=== PATIENT | female | born 1950 | race Caucasian/White ===

== ENCOUNTER → 2017-01-15 | Outpatient (CLI) | payer OTHER | LOC: RAD 05:12 | DX: Z12.31 Encounter for screening mammogram for malignant neoplasm of breast (principal) ==

== ENCOUNTER → 2018-04-07 | Outpatient (CLI) | payer OTHER | LOC: RAD 09:29 | DX: Z12.31 Encounter for screening mammogram for malignant neoplasm of breast (principal) ==

== ENCOUNTER 2018-09-24 10:51 | Emergency (ER) | payer OTHER ==
[~2018-09-24] VITALS: Ht 154.9 cm; Wt 92.5 kg
[2018-09-24 10:52] VITALS: BP 138/60
== END 2018-09-24 12:00 | disposition home or self-care (01) ==
LOC: ER 10:51
DX: S81.811A Laceration without foreign body, right lower leg, initial encounter (principal); J45.909 Unspecified asthma, uncomplicated; F32.9 Major depressive disorder, single episode, unspecified; X58.XXXA Exposure to other specified factors, initial encounter; Y93.89 Activity, other specified; Y92.89 Other specified places as the place of occurrence of the external cause; Y99.8 Other external cause status

== ENCOUNTER 2018-09-24 13:25 | Emergency (ER) | payer OTHER ==
[~2018-09-24] VITALS: Ht 154.9 cm; Wt 92.5 kg
[2018-09-24 14:46] VITALS: BP 121/77
== END 2018-09-24 14:46 | disposition home or self-care (01) ==
LOC: ER 13:25
DX: S71.111A Laceration without foreign body, right thigh, initial encounter (principal); X58.XXXA Exposure to other specified factors, initial encounter; Y93.89 Activity, other specified; Y92.89 Other specified places as the place of occurrence of the external cause; Y99.8 Other external cause status; Z91.041 Radiographic dye allergy status

== ENCOUNTER → 2018-12-09 | Outpatient (CLI) | payer OTHER | LOC: RAD 08:33 | DX: R05 Cough (principal); R06.00 Dyspnea, unspecified; Z88.8 Allergy status to other drugs, medicaments and biological substances ==

== ENCOUNTER → 2020-03-24 | Outpatient (CLI) | payer OTHER | LOC: RAD 12:16 | PROVIDERS: ATTEND Pediatrics | DX: R05 Cough (principal); R06.00 Dyspnea, unspecified ==

== ENCOUNTER 2020-09-30 11:02 | Emergency (ER) | payer OTHER ==
[~2020-09-30] VITALS: Ht 157.5 cm; Wt 91.6 kg
--- NOTE | ~2020-09-30 | EMS ---
[facility] [address] [place] [address] EMS Patient Care Report Name: RSOSI CATALAN Room #: REG Jil#: [id number] Admission: 09/30/20 Attend Phys: Discharge: Date of : 46 Report #: [id number] THIS REPORT FOR: //name// Report Transmitted: 09/30/2020 14:27 EMS Care Summary [place], [place]/[facility] Incident [id number] @ 09/30/2020 10:41 Incident Location [address] [facility] [address] [place] [address] Patient ROSSI CATALAN Female, 69 Years 1950 Patient Address Patient History Asthma,TIA, Patient Allergies No known allergies, Patient Medications ASA, Zoloft, Chief Complaint N/V AND DIZZINESS Disposition Transported No Lights/[place] Dispatch Reason Stroke/CVA Transported To [facility] Narrative RESPONDED TO STROKE AT PT WORK. UPON ARRIVAL PT FOUND SITTING IN PASSENGER SIDE OF VEHICLE. PT IS ALERT AND ORIENTED. PT REPORTS FEELING DIZZY AND VOMITING TWICE ARTIFICIAL FLOWERS DYER. PT IS NEGATIVE ON STROKE SCALE THROUGHOUT. PT ASSISTED TO COT NEARBY. PT VITALS AND 3 LEAD OBTAINED. PT GIVEN ORAL ZOFRAN WITH NO CHANGES IN NAUSEA. PT TRANSPORTED TO [facility]. PT SCOOTED TO BED AND HANDRAILS UP. REPORT [facility] [address] [place] [address] EMS Patient Care Report Name: ROSSI CATALAN Room #: REG ESAU Ley#: [id number] Admission: 09/30/20 Attend Phys: Discharge: Date of : 46 Report #: [id number] GIVEN TO NURSE. Initial Vitals @10:55P: 70,R: 16,BP: 160/128,SpO2: 98, @10:50P: 81, @10:50P: 61,R: 18,BP: 160/125,Pain: 0/10,GCS: 15,SpO2: 97,Revised Trauma: 12, Assessments @10:46MENTAL:Person Oriented,Time Oriented,Place Oriented,Event Oriented,SKIN:HEENT:Head/Face: No Abnormalities,Neck/Airway: No Abnormalities,LUNG SOUNDS:General: Vomiting,General: Nausea,Left Upper: No Abnormalities,Right Upper: No Abnormalities,Left Lower: No Abnormalities,Right Lower: No Abnormalities,ABDOMEN:General: Vomiting,General: Nausea,Left Upper: No Abnormalities,Right Upper: No Abnormalities,Left Lower: No Abnormalities,Right Lower: No Abnormalities,PELVIS//GI:No Abnormalities,EXTREMITIES:Left Arm: No Abnormalities,Right Arm: No Abnormalities,Left Leg: No Abnormalities,Right Leg: No Abnormalities,PULSE:NEURO:No Abnormalities,@10:53MENTAL:Time Oriented,Event Oriented,Place Oriented,Person Oriented,SKIN:HEENT:Head/Face: No Abnormalities,Eyes: No Abnormalities,Neck/Airway: No Abnormalities,LUNG SOUNDS:General: Nausea,Left Upper: No Abnormalities,Right Upper: No Abnormalities,Left Lower: No Abnormalities,Right Lower: No Abnormalities,ABDOMEN:General: Nausea,Left Upper: No Abnormalities,Right Upper: No Abnormalities,Left Lower: No Abnormalities,Right Lower: No Abnormalities,PELVIS//GI:EXTREMITIES:PULSE:NEURO: Impression Nausea Procedures @10:52Zofran - 4 Milligrams (mg) - OralResponse: Unchanged@10:46ALS AssessmentResponse: UnchangedSucceeded@10:503-Lead ECGResponse: UnchangedSucceeded Timeline 10:39,Call Received 10:39,Dispatch Notified 10:41,Dispatched 10:41,En Route 10:45,On Scene 10:46,At Patient 10:46,ALS Assessment,Response: UnchangedSucceeded, 10:50,3-Lead ECG,Response: UnchangedSucceeded, 10:50,BP: 160/125 M,PULSE: 61,RR: 18 R,SPO2: 97 Ox,ETCO2: ,BG: ,PAIN: 0,GCS: 15, 10:50,BP: / M,PULSE: 81,RR: R,SPO2: Ox,ETCO2: ,BG: ,PAIN: ,GCS: , [address] [address] EMS Patient Care Report Name: ROSSI CATALAN Room #: REG NevaehR.#: [id number] Admission: 09/30/20 Attend Phys: Discharge: Date of : 46 Report #: [id number] 10:52,Depart Scene 10:52,Zofran - 4 Milligrams (mg) - Oral,Response: Unchanged 10:55,BP: 160/128 M,PULSE: 70,RR: 16 R,SPO2: 98 Ox,ETCO2: ,BG: ,PAIN: ,GCS: , 10:58,At Destination 11:09,Call Closed Disclaimer v1.1 Copyright 2020 [employer] This EMS Care Summary contains data elements from the applicable legal record (which may be displayed differently). It is designed to provide pertinent information for the following purposes: continuity of care, clinical quality, and state data reporting. The complete legal record is available to ED staff and administrators of the receiving hospital in [employer]'s Patient Tracker. All data is provided "as is."
[2020-09-30 11:23] LABS: ABSOLUTE NEUTROPHILS 3.6 thou/uL (1.4-8.2); BASOPHILS 1.2 % (0.0-2.0); EOSINOPHILS 8.5 % (0.0-3.0); HEMOGLOBIN 13.8 gm/dL (12.0-15.0); LYMPHOCYTES 23.8 % (24.0-44.0); MCH 31.1 pg (26.0-34.0); MCHC 34.6 g/dL (28.0-37.0); MCV 89.9 fL (80.0-100.0); MONOCYTES 7.4 % (1.0-8.0); PLATELET COUNT 229 thou/uL (150-400); POLYS 59.1 % (36.0-66.0); RBC 4.45 mil/uL (4.20-5.00); RDW 13.2 % (10.5-14.5)
[2020-09-30] MEDS ORDERED: EFFEXOR XR75 MG PO (11:25)
[2020-09-30] MEDS ORDERED: ADULT LOW DOSE81 MG PO (11:25)
[2020-09-30] MEDS ORDERED: LOSARTAN PO (11:25)
[2020-09-30 11:33] LABS: ANION GAP 9 mmol/L (7-16); BUN 21 mg/dL (7-18); CALCIUM 8.9 mg/dL (8.5-10.1); CHLORIDE 106 mmol/L (98-107); CO2 28 mmol/L (21-32); GLUCOSE 116 mg/dL (74-106); POTASSIUM 3.7 mmol/L (3.5-5.1); SODIUM 143 mmol/L (136-145)
[2020-09-30 11:43] LABS: ALBUMIN 3.6 g/dL (3.4-5.0); MAGNESIUM 1.9 mg/dL (1.8-2.4); SGOT 23 U/L (15-37); SGPT 42 U/L (14-59); TOTAL BILIRUBIN 0.5 mg/dL (0.2-1.0); TOTAL PROTEIN 7.2 g/dL (6.4-8.2); TROPONIN-I <0.06 ng/mL (<0.06)
[2020-09-30 12:10] LABS: URINE BILIRUBIN NEGATIVE (Negative); URINE BLOOD NEGATIVE (Negative); URINE CLARITY HAZY; URINE COLOR YELLOW; URINE GLUCOSE-RANDOM* NEGATIVE (Negative); URINE KETONES NEGATIVE (Negative); URINE LEUKOCYTES-REFLEX NEGATIVE (Negative); URINE NITRITE-REFLEX NEGATIVE (Negative); URINE PROTEIN (DIPSTICK) NEGATIVE (Negative); URINE UROBILINOGEN 0.2 E.U./dl (0.2-1.0)
[2020-09-30 16:20] VITALS: BP 140/71
--- NOTE | 2020-09-30 16:54 | EKG ---
[place] [id number] [facility] [place] [address] ELECTROCARDIOGRAM REPORT Name: ROSSI CATALAN Greg [id number] Admission: 09/30/20 Attend Phys: Discharge: 09/30/20 Date of : 46 Report #: [id number] [facility] ED Test Date: 2020-09-30 Test Time: 11:16:15 Pat Name: ROSSI CATALAN Department: Room: Gender: F [employer] Operator: ADILSON : 1950 Requested By: Tania Tovar Order Number: [id number] MD: Josh Stewart Measurements Intervals [place] Rate: 84 P: 75 NM: 167 QRS: -7 QRSD: 78 T: 51 QT: 408 QTc: 483 Interpretive Statements Sinus rhythm Normal tracing No previous ECG available for comparison Electronically Signed On 09-30-2020 16:53:54 CDT by Josh Stewart [email or web address] <ELECTRONICALLY SIGNED> By: Josh Stewart MD, [facility] 09/30/20 [id number] Josh Stewart MD, FACC /EPI
== END 2020-09-30 16:41 | disposition home or self-care (01) ==
LOC: ER 11:02
PROVIDERS: Physician Assistant
DX: R42 Dizziness and giddiness (principal); R11.2 Nausea with vomiting, unspecified; J45.909 Unspecified asthma, uncomplicated; Z79.82 Long term (current) use of aspirin; Z91.041 Radiographic dye allergy status

== ENCOUNTER → 2021-05-05 | Outpatient (CLI) | payer OTHER ==
[~2021-05-05] MED LIST: ADULT LOW DOSE81 MG PO; EFFEXOR XR75 MG PO; LOSARTAN PO
== END ==
LOC: RAD 09:02 → BC 14:33
PROVIDERS: ATTEND Obstetrics & Gynecology
DX: Z12.31 Encounter for screening mammogram for malignant neoplasm of breast (principal); N64.89 Other specified disorders of breast

== ENCOUNTER → 2021-05-09 | Outpatient (CLI) | payer OTHER | LOC: ULTRA 13:00 | PROVIDERS: ATTEND Obstetrics & Gynecology | DX: N60.01 Solitary cyst of right breast (principal); N63.41 Unspecified lump in right breast, subareolar ==